=== PATIENT | female | born 1965 | race Two or more races ===

== ENCOUNTER 2019-11-19 11:40 | Outpatient (CLI) | payer OTHER ==
[~2019-11-19] VITALS: Ht 152.4 cm; Wt 68.0 kg
[2019-11-19] MEDS ORDERED: FLONASE16 GM NASAL (12:53)
[2019-11-19] MEDS ORDERED: SINGULAIR 10MG10 MG PO (12:54)
[2019-11-19] MEDS ORDERED: XYZAL5 MG PO (12:54)
== END 2019-11-19 16:42 | disposition home or self-care (01) ==
LOC: OFIC 805 11:40
PROVIDERS: ATTEND Otolaryngology
DX: G47.33 Obstructive sleep apnea (adult) (pediatric) (principal); J34.89 Other specified disorders of nose and nasal sinuses; J34.2 Deviated nasal septum; K21.0 Gastro-esophageal reflux disease with esophagitis; R49.0 Dysphonia; H61.23 Impacted cerumen, bilateral